=== PATIENT | male | born 1960 | race Caucasian/White ===

== ENCOUNTER 2025-05-10 06:45 | Day surgery (SDC) | payer MEDICARE, MEDICAID ==
[2025-05-04 13:41] LABS: Hematocrit 50.7 % (41.0-53.0); Hemoglobin 17.2 g/dL (13.5-17.5); Mean Corpuscular Hemoglobin 33.3 pg (28.0-32.0); Mean Corpuscular Volume 98.0 fL (80.0-100.0); Nucleated Red Blood Cells % 0.1 %
[2025-05-04 13:49] LABS: Prothrombin Time 10.2 sec (9.3-11.8)
[2025-05-04 13:50] LABS: INR 0.96 (0.9-1.15); Partial Thromboplastin Time 28.6 SEC (24.5-34.5)
[2025-05-04 13:52] LABS: Alanine Aminotransferase 25 U/L (7-40); Albumin 4.6 g/dL (3.2-4.8); Alkaline Phosphatase 94 U/L (46-116); Anion Gap 5 (5-15); BUN/Creatinine Ratio 8.7 (10.0-20.0); Blood Urea Nitrogen 10 mg/dL (9-23); Calcium 9.2 mg/dL (8.7-10.4); Carbon Dioxide 29 mmol/L (20-31); Potassium 4.8 mmol/L (3.5-5.1); Sodium 141 mmol/L (136-145); Total Protein 7.3 g/dL (5.7-8.2)
[2025-05-04 13:53] LABS: Bilirubin, Total 0.4 mg/dL (0.2-1.0); Chloride 107 mmol/L (98-107); Glucose 171 mg/dL (74-106)
[2025-05-04 14:23] LABS: Urine Protein, UAD Negative (Negative)
[2025-05-10] VITALS (7 sets, daily range): BP systolic 100–114; BP diastolic 69–79; PULSE 68–74; RESP 11–19; TEMP 97.6; O2SAT 93–95
[~2025-05-10] VITALS: Ht 175.3 cm; Wt 90.3 kg
[~2025-05-10 06:45] MED LIST: ASPI1TAB20 PO; ATOR40TA52 PO; CLOP75TA28 PO; EMPA1TAB PO; MAGN241.4 PO; NITR0.4S29 SL; SACU1TAB PO; SOTA120T39 PO
[2025-05-10] MEDS: IODIXANOL 320MG/ML 100ML BTL IV ONE (07:36)
[2025-05-10] MEDS: ANGIOMAX 250 MG VIAL IV ONE (08:20)
[2025-05-10] MEDS: VERAPAMIL 2.5MG/ML INJ 2ML VIAL IV ONE (08:21)
[2025-05-10] MEDS: fentaNYL CITRATE 100 MCG/2 ML VL ONE (08:21)
[2025-05-10] MEDS: HEPARIN SODIUM (PORCINE) 5000 UNITS/ML 1ML VIAL ONE ×2 (08:21→10:31)
[2025-05-10] MEDS: MIDAZOLAM HCL 2MG/2ML 2ml VIAL (1mg/ml) ONE ×2 (08:22→09:58)
[2025-05-10] MEDS: SODIUM CHL 0.9% 0 ML ONE (08:22)
[2025-05-10] MEDS: LIDOCAINE 2%HCL (LOCAL ANESTH.) INJ 20ML MDV ONE (08:22)
--- NOTE | 2025-05-10 10:27 | DVHOP2 ---
Operative Report Procedures performed: Left heart catheterization and bilateral coronary angiogram Moderate sedation Diagnosis: Nonobstructive coronary artery disease Patent stent (with no in stent stenosis) in obtuse marginal Nonischemic cardiomyopathy Slow flow in LAD was in favor of microvascular disease. Cardiac suggestions for management: Optimized medical therapy Guideline directed medical therapy for systolic heart failure Lifestyle and risk factor modifications Findings: LVEF: 35% LVEDP: 10 mm Hg There was no transaortic valve pressure gradient Left main: Left main was coming off the left sinus of Valsalva. It was free of disease. LAD: LAD was coming off the left main. It provided a large diagonal and two smaller size D2 and D3. Mid LAD had of into 35% disease. Other portions of the LAD had mild disease. GIGI flow of the LAD was GIGI two flow. The 1st diagonal (large sized vessel) had up to 50% proximal disease. LCX: LCX was coming off the left main. It provided two medium-sized obtuse marginals. There was a patent stent with no in-stent stenosis in the 2nd obtuse marginal. Other portions of LCX and branches revealed minor luminal irregularities. RCA: RCA was coming off the right sinus of Valsalva. It was dominant vessel and provided RPDA/RPLS. Proximal RCA had up to 30% disease. Other portions of RCA and branches had minimal luminal irregularities. Presentation: Patient is a 64-year-old gentleman who presented to the office with dyspnea on exertion. Past medical history includes coronary artery disease and status post PCI, peripheral artery disease, systolic heart failure, hypertension, hyperlipidemia, depression, diabetes mellitus and status post ICD implantation. Echocardiogram of September 2024 revealed ejection fraction of 35- 40%, mild biatrial enlargement, aortic root of 4 cm. Nuclear stress test of June 2024 revealed normal perfusion. Patient was sent for cardiac catheterization. Procedure: After obtaining informed consent, the patient was brought to labor custodian. He was prepped and draped in sterile fashion. 1 mg of Versed and 50 mcg of fentanyl were used for moderate sedation (lasting more than 30 minutes). At 1st we used the right radial artery for access. Using Seldinger technique, the right radial artery was accessed and a six [place] slender sheath was inserted into it. There was some spasm and the catheter went to the side branch. Decision was made to abandon the radial access and access the femoral. Under ultrasound guidance and using a micro puncture, the right femoral artery was accessed. After angiographically proving a good access point, the micropuncture sheath was exchanged over a wire to a six [place] femoral sheath. A six [place] JL4 diagnostic catheter was used to perform left coronary angiography. A six [place] JR4 diagnostic catheter was used to perform right coronary angiography. A six [place] pigtail catheter was used to perform left heart catheterization (obtaining pressures and performing left ventriculography). There was no indication for any transcatheter revascularization. Total bleeding was less than 15 mL. There was no dissection/hematoma/perforation. Right femoral artery access site was managed by deploying an Angio-Seal device for the right radial artery access site was managed by using a TR band. Fluoroscopy time: 6.8 minutes contrast: 100 mL of Visipaque DONTE HANNA MD May 10, 2025 10:27
--- NOTE | 2025-05-12 10:38 | ECG ---
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
== END 2025-05-10 12:40 | disposition home or self-care (01) ==
LOC: CATH 06:45
PROVIDERS: ATTEND Internal Medicine Cardiovascular Disease
DX: I25.10 Atherosclerotic heart disease of native coronary artery without angina pectoris (principal); I71.20 Thoracic aortic aneurysm, without rupture, unspecified; D64.9 Anemia, unspecified; E11.51 Type 2 diabetes mellitus with diabetic peripheral angiopathy without gangrene; E78.5 Hyperlipidemia, unspecified; I42.8 Other cardiomyopathies; I11.0 Hypertensive heart disease with heart failure; I50.22 Chronic systolic (congestive) heart failure; Z95.5 Presence of coronary angioplasty implant and graft; Z95.810 Presence of automatic (implantable) cardiac defibrillator; R06.09 Other forms of dyspnea; F32.A Depression, unspecified; I73.9 Peripheral vascular disease, unspecified
CPT/HCPCS: 36415; 80053; 81001; 85025; 85610; 85730; 93005; 93458; C1760; C1769; C1894; J1644; J2250; J3010; J7030; Q9967; 99152